=== PATIENT | male | born 1950 | race Caucasian/White ===

== ENCOUNTER 2016-10-10 17:37 | Emergency (ER) | payer OTHER ==
[~2016-10-10] VITALS: Ht 175.3 cm; Wt 148.5 kg
[~2016-10-10 17:37] MED LIST: ALLEGRA ALLERG180 MG PO; ATENOLOL25 M1 PO; ATENOLOL25 MG PO; AVAPRO150 MG PO; CARBAMAZEPINE400 MG PO; COUMADIN,JANTOV10 MG PO; COUMADIN5 MG PO; FENOFIBRATE160 M1 PO; Keppra PO; LIPITOR80 MG PO; LOVENOX150 MG/1 M SC; Lipitor PO; OMEPRAZOLE40 M1 PO; PRAVACHOL20 MG PO; SPIRIVA1 INHALATI IH; TEGRETOL-XR,CA100 MG PO; TEGRETOL-XR,CA400 MG PO; TEGRETOL100 MG PO; TEGretol-XR,Carbatro PO; TOPROL XL6.25 MG PO; Toprol XL PO; [UNRECOGNIZED DRUG - OTHER]
[2016-10-10 17:57] VITALS: BP 150/57
== END 2016-10-10 19:25 | disposition home or self-care (01) ==
LOC: EME 17:37
DX: R04.0 Epistaxis (principal); I10 Essential (primary) hypertension; Z79.01 Long term (current) use of anticoagulants; Z86.718 Personal history of other venous thrombosis and embolism; Z88.6 Allergy status to analgesic agent
CPT/HCPCS: 99281; 99284

== ENCOUNTER 2018-02-07 17:45 | Emergency (ER) | payer OTHER ==
[~2018-02-07] VITALS: Ht 175.3 cm; Wt 144.6 kg
[2018-02-07 18:41] LABS: APPEARANCE CLEAR ((CLEAR)); BILIRUBIN NEGATIVE; BLOOD NEGATIVE; COLOR YELLOW ((YELLOW)); GLUCOSE (STRIP) NEGATIVE; KETONES NEGATIVE; LEUKOCYTES NEGATIVE; NITRITE NEGATIVE; PROTEIN (STRIP) NEGATIVE; SPECIFIC GRAVITY 1.015 (1.000-1.030); UCUL ADDED? NO; UROBILINOGEN 0.2 MG/DL (0.2-1.0)
[2018-02-07 18:43] LABS: HEMATOCRIT 37.9 % (38.0-50.0); HEMOGLOBIN 12.8 G/DL (12.5-16.6); MCH 30.9 PG (29.0-34.0); MCHC 33.8 G/DL (30.0-36.0); MCV 91.5 FL (86-99); PLATELET COUNT 223 K/uL (156-360); RBC DIS.WIDTH-CV 13.8 % (11.8-14.6); RBC DIS.WIDTH-SD 46.7 % (39-53); RED BLOOD COUNT 4.14 M/uL (4.00-5.50); WHITE BLOOD COUNT 6.2 K/uL (4.1-10.2)
[2018-02-07 19:07] LABS: CHLORIDE 105 MEQ/L (99-109); POTASSIUM 4.1 MEQ/L (3.7-5.4); SODIUM 138 MEQ/L (136-147)
[2018-02-07 19:13] LABS: CREATININE 0.9 MG/DL (0.6-1.3); GFR ESTIMATE (CALCULATED) > 59 mL/min/ (58.99-99999); GLUCOSE 90 mg/dL (70-99); UREA NITROGEN (BUN) 20 mg/dL (9-23)
[2018-02-07] MEDS ORDERED: SKELAXIN800 MG PO (20:11)
[2018-02-07] MEDS ORDERED: ULTRAM50 MG PO (20:11)
[2018-02-07 20:53] VITALS: BP 126/60
== END 2018-02-07 20:54 | disposition home or self-care (01) ==
LOC: RME 17:45 → EME 17:45 → RME 20:54
PROVIDERS: Physician Assistant
DX: M54.5 Low back pain (principal); R10.30 Lower abdominal pain, unspecified; K21.9 Gastro-esophageal reflux disease without esophagitis; I10 Essential (primary) hypertension; E78.5 Hyperlipidemia, unspecified; J44.9 Chronic obstructive pulmonary disease, unspecified; R56.9 Unspecified convulsions; G47.30 Sleep apnea, unspecified; I25.10 Atherosclerotic heart disease of native coronary artery without angina pectoris; Z86.711 Personal history of pulmonary embolism; Z86.718 Personal history of other venous thrombosis and embolism; Z87.442 Personal history of urinary calculi; Z79.01 Long term (current) use of anticoagulants; Z90.49 Acquired absence of other specified parts of digestive tract; Z87.891 Personal history of nicotine dependence; Z88.6 Allergy status to analgesic agent; Z88.5 Allergy status to narcotic agent; Z88.8 Allergy status to other drugs, medicaments and biological substances
CPT/HCPCS: 74176; 80048; 81003; 85027; 99281; 99284; J1100